=== PATIENT | female | born 1960 | race Caucasian/White ===

== ENCOUNTER 2024-09-11 13:10 | Emergency (ER) | payer MEDICAID ==
[~2024-09-11] VITALS: Ht 154.9 cm; Wt 57.5 kg
[2024-09-11 13:40] VITALS: BP 117/67; PULSE 72; RESP 18; TEMP 97.6; O2SAT 97
[2024-09-11] MEDS ORDERED: GABA300C PO (17:45)
[2024-09-11] MEDS ORDERED: NALT50TA5 PO (17:45)
== END 2024-09-11 18:17 | disposition home or self-care (01) ==
LOC: ER 13:10
DX: F10.10 Alcohol abuse, uncomplicated (principal); Z79.899 Other long term (current) drug therapy; Y90.9 Presence of alcohol in blood, level not specified
CPT/HCPCS: 99283